=== PATIENT | male | born 1965 | race Caucasian/White ===

== ENCOUNTER 2016-12-07 14:11 | Emergency (ER) | payer BC ==
[~2016-12-07] VITALS: Ht 175.3 cm; Wt 85.0 kg
[2016-12-07 14:12] VITALS: BP 165/101; PULSE 115; RESP 18; TEMP 98.6; O2SAT 95
--- NOTE | 2016-12-07 14:23 | PD ---
Physical Exam Date Seen by Provider: Dec 07, 2016 Time Seen by Provider: 14:21 Narrative 51 yo male here for evaluation of urinary retention. Feels like has to go, but has not been able to go at all. Never had this. Pain like the bladder is full. No fevers, chills or sweats. No injuries. Vitals are stable in triage. Awaiting bed placement. Data Data Last Documented VS Vital Signs Date Time Temp Pulse Resp B/P Pulse Ox O2 Delivery O2 Flow Rate FiO2 12/07/16 14:12 98.6 115 18 165/101 95 Room Air [facility] Medical Record Reviewed: Yes Supervised Visit with DILLON: No Andre Polk Dec 07, 2016 14:22
[2016-12-07] MEDS ORDERED: SODIUM CHLORIDE 0.9% FLUSH 10 ML FLUSH IV FLUSH PRN (14:45)
--- NOTE | 2016-12-07 14:47 | PD ---
HPI Chief Complaint: Complaint Time Seen by Provider: 14:30 Travel History International Travel<30 days: No Contact w/Intl Traveler<30days: No Traveled to known affect area: No History of Present Illness HPI 51-year-old male with no significant past medical history presents emergency department for evaluation of urinary retention. Patient reports he last voided at 8 AM this morning. Since then he has been unable to urinate and feels as if his bladder is full. Patient has never had this before. He is reporting moderate lower abdominal discomfort. He reports over the last several days he has had increasing difficulty voiding. Stating he has to "concentrate "or running water to initiate voiding. He denies fever, chills, dysuria, nausea, vomiting, flank pain. PFSH Past Medical History Medical History: Denies Significant Hx Social History Tobacco Use: No Allergies-Medications (Allergen,Severity, Reaction): Coded Allergies: No Known Allergies (Unverified , 12/07/16) Reported Meds & Prescriptions Reported Meds & Active Scripts Active No Active Prescriptions or Reported Medications Review of Systems Except as stated in HPI: all other systems reviewed are Neg General / Constitutional: No: Fever Eyes: No: Visual changes HENT: No: Headaches Cardiovascular: No: Chest Pain or Discomfort Respiratory: No: Shortness of Breath Gastrointestinal: No: Abdominal Pain Genitourinary: Positive: Other (urinary retention) Physical Exam Narrative GENERAL: Alert, well-appearing male in no acute distress SKIN: Focused skin assessment warm/dry. HEAD: Atraumatic. Normocephalic. EYES: Pupils equal and round. No scleral icterus. No injection or drainage. ENT: No nasal bleeding or discharge. Mucous membranes pink and moist. NECK: Trachea midline. No JVD. CARDIOVASCULAR: Regular rate and rhythm. No murmur appreciated. RESPIRATORY: No accessory muscle use. Clear to auscultation. Breath sounds equal bilaterally. GASTROINTESTINAL: Abdomen soft, TTP over suprapubic region, full distended bladder palpated. Hepatic and splenic margins not palpable. RECTAL EXAM: Multiple inflamed external hemorrhoids, limited exam due to patient 's pain. stool is brown. MUSCULOSKELETAL: No obvious deformities. No clubbing. No cyanosis. No edema. NEUROLOGICAL: Awake and alert. No obvious cranial nerve deficits. Motor grossly within normal limits. Normal speech. PSYCHIATRIC: Appropriate mood and affect; insight and judgment normal. Data Data Last Documented VS Vital Signs Date Time Temp Pulse Resp B/P Pulse Ox O2 Delivery O2 Flow Rate FiO2 12/07/16 14:12 98.6 115 18 165/101 95 Room Air Orders Basic Metabolic Panel (Bmp) (12/07/16 14:35) Complete Blood Count With Diff (12/07/16 14:35) Urinalysis - C+S If Indicated (12/07/16 14:35) Iv Access Insert/Monitor (12/07/16 14:35) Sodium Chloride 0.9% Flush (Ns Flush) (12/07/16 14:45) Urinary Catheter Insert/Apply (12/07/16 14:35) Sodium Chlor 0.9% 1000 Ml Inj (Ns 1000 M (12/07/16 16:19) Labs Laboratory Tests Test 12/07/16 12/07/16 14:00 14:44 Urine Color YELLOW Urine Turbidity HAZY Urine pH 7.0 Urine Specific [place] 1.011 Urine Protein NEG mg/dL Urine Glucose (UA) NEG mg/dL Urine Ketones NEG mg/dL Urine Occult Blood NEG Urine Nitrite NEG Urine Bilirubin NEG Urine Urobilinogen LESS THAN 2.0 MG/DL Urine Leukocyte Esterase NEG Urine WBC 1 /hpf Urine Yeast (Budding) FEW Microscopic Urinalysis Comment CULT NOT INDICATED White Blood Count 5.5 TH/MM3 Red Blood Count 4.99 MIL/MM3 Hemoglobin 14.7 GM/DL Hematocrit 43.4 % Mean Corpuscular Volume 86.9 FL Mean Corpuscular Hemoglobin 29.5 PG Mean Corpuscular Hemoglobin 33.9 % Concent Red Cell Distribution Width 14.8 % Platelet Count 271 TH/MM3 Mean Platelet Volume 7.4 FL Neutrophils (%) (Auto) 58.5 % Lymphocytes (%) (Auto) 21.3 % Monocytes (%) (Auto) 17.6 % Eosinophils (%) (Auto) 1.5 % Basophils (%) (Auto) 1.1 % Neutrophils # (Auto) 3.2 TH/MM3 Lymphocytes # (Auto) 1.2 TH/MM3 Monocytes # (Auto) 1.0 TH/MM3 Eosinophils # (Auto) 0.1 TH/MM3 Basophils # (Auto) 0.1 TH/MM3 CBC Comment DIFF FINAL Differential Comment Sodium Level 141 MEQ/L Potassium Level 3.6 MEQ/L Chloride Level 101 MEQ/L Carbon Dioxide Level 28.9 MEQ/L Anion Gap 11 MEQ/L Blood Urea Nitrogen 8 MG/DL Creatinine 0.84 MG/DL Estimat Glomerular Filtration 97 ML/MIN Rate Random Glucose 107 MG/DL Calcium Level 9.6 MG/DL [facility] Medical Decision Making Medical Screen Exam Complete: Yes Emergency Medical Condition: Yes Differential Diagnosis Urinary retention, BPH, UTI, external hemorrhoids Narrative Course 51 year old male with new onset urinary retention. Last void was at 8am. On physical exam patient has distended bladder. IV established, labs ordered and pending, rolle catheter ordered. Patient had 2000 cc of urine post-Rolle inserted. CBC is unremarkable BMP unremarkable UA negative for infection Diagnostic findings discussed with patient. He will be discharged home with a Rolle catheter and leg bag with follow-up with urology. Patient reports upon discharge and they're driving home to [place] where he has a urologist in mind to follow-up with. Return precautions discussed. Patient verbalizes understanding and agrees to plan. Diagnosis Primary Impression: Urinary retention Additional Impression: External hemorrhoids without complication Referrals: Primary Care Physician Additional Instructions: Leave the Rolle catheter in place until follow-up. Make an appointment for prompt follow-up with urology. Return to the emergency department if he developed new or worsening symptoms such as fever, chills, abdominal pain, flank pain. Scripts Hydrocortisone-Pramoxine Rectal (Proctofoam Hc Rectal)1-1% Foam1 Applic RECTAL Q8H PRN (ITCHING/INFLAMMATION) #1 CAN Ref 0 Prov:Amina Mcdonough 12/07/16 Disposition: 01 DISCHARGE HOME Condition: Stable Amina Mcdonough Dec 07, 2016 14:47
[2016-12-07 15:28] LABS: BLOOD, URINE NEG (NEG); COMMENT (UR) CULT NOT INDICATED; CULTURE IF INDICATED CULT NOT INDICATED; GLUCOSE,URINE NEG (NEG); KETONE, URINE NEG (NEG); NITRITE,URINE NEG (NEG); URINE COLOR YELLOW (YELLW/STRAW)
[2016-12-07 15:29] LABS: AUTOMATED NEUTROPHIL # 3.2 TH/MM3 (1.8-7.7); BASOPHIL # 0.1 TH/MM3 (0-0.2); BASOPHIL % 1.1 % (0.0-2.0); EOSINOPHIL # 0.1 TH/MM3 (0-0.4); EOSINOPHIL % 1.5 % (0.0-4.0); HEMATOCRIT 43.4 % (39.0-51.0); HEMO FLAGS DIFF FINAL; LYMPH % 21.3 % (9.0-44.0); LYMPHOCYTE # 1.2 TH/MM3 (1.0-4.8); MEAN CELL VOLUME 86.9 FL (80.0-100.0); MEAN CORPUSCULAR HEMOGLOBIN 29.5 PG (27.0-34.0); MEAN CORPUSCULAR HGB CONC 33.9 % (32.0-36.0); MONO % 17.6 % (0.0-8.0); NEUT % 58.5 % (16.0-70.0); PLATELET COUNT 271 TH/MM3 (150-450); RED BLOOD COUNT 4.99 MIL/MM3 (4.50-5.90); RED CELL DISTRIBUTION WIDTH 14.8 % (11.6-17.2); WHITE BLOOD COUNT 5.5 TH/MM3 (4.0-11.0)
[2016-12-07 16:08] LABS: BICARBONATE 28.9 MEQ/L (21.0-32.0); POTASSIUM 3.6 MEQ/L (3.5-5.1)
[2016-12-07] MEDS ORDERED: SODIUM CHLOR 0.9% 1000 ML INJ 1,000 ML IV SCH (16:19)
--- NOTE | 2016-12-07 16:26 | PD ---
Data Data Last Documented VS Vital Signs Date Time Temp Pulse Resp B/P Pulse Ox O2 Delivery O2 Flow Rate FiO2 12/07/16 14:12 98.6 115 18 165/101 95 Room Air Orders Basic Metabolic Panel (Bmp) (12/07/16 14:35) Complete Blood Count With Diff (12/07/16 14:35) Urinalysis - C+S If Indicated (12/07/16 14:35) Iv Access Insert/Monitor (12/07/16 14:35) Sodium Chloride 0.9% Flush (Ns Flush) (12/07/16 14:45) Urinary Catheter Insert/Apply (12/07/16 14:35) Sodium Chlor 0.9% 1000 Ml Inj (Ns 1000 M (12/07/16 16:19) Labs Laboratory Tests Test 12/07/16 12/07/16 14:00 14:44 Urine Color YELLOW Urine Turbidity HAZY Urine pH 7.0 Urine Specific [place] 1.011 Urine Protein NEG mg/dL Urine Glucose (UA) NEG mg/dL Urine Ketones NEG mg/dL Urine Occult Blood NEG Urine Nitrite NEG Urine Bilirubin NEG Urine Urobilinogen LESS THAN 2.0 MG/DL Urine Leukocyte Esterase NEG Urine WBC 1 /hpf Urine Yeast (Budding) FEW Microscopic Urinalysis Comment CULT NOT INDICATED White Blood Count 5.5 TH/MM3 Red Blood Count 4.99 MIL/MM3 Hemoglobin 14.7 GM/DL Hematocrit 43.4 % Mean Corpuscular Volume 86.9 FL Mean Corpuscular Hemoglobin 29.5 PG Mean Corpuscular Hemoglobin 33.9 % Concent Red Cell Distribution Width 14.8 % Platelet Count 271 TH/MM3 Mean Platelet Volume 7.4 FL Neutrophils (%) (Auto) 58.5 % Lymphocytes (%) (Auto) 21.3 % Monocytes (%) (Auto) 17.6 % Eosinophils (%) (Auto) 1.5 % Basophils (%) (Auto) 1.1 % Neutrophils # (Auto) 3.2 TH/MM3 Lymphocytes # (Auto) 1.2 TH/MM3 Monocytes # (Auto) 1.0 TH/MM3 Eosinophils # (Auto) 0.1 TH/MM3 Basophils # (Auto) 0.1 TH/MM3 CBC Comment DIFF FINAL Differential Comment Sodium Level 141 MEQ/L Potassium Level 3.6 MEQ/L Chloride Level 101 MEQ/L Carbon Dioxide Level 28.9 MEQ/L Anion Gap 11 MEQ/L Blood Urea Nitrogen 8 MG/DL Creatinine 0.84 MG/DL Estimat Glomerular Filtration 97 ML/MIN Rate Random Glucose 107 MG/DL Calcium Level 9.6 MG/DL MDM Supervised Visit with DILLON: Yes Narrative Course The history, exam, and medical decision-making in the associated midlevel provider note were completed with my assistance. I reviewed and agree with the findings presented. I attest that I had a [id number] encounter with the patient on the same day, and personally performed and documented my assessment and findings in the medical record. *My assessment and Findings: This is a 51-year-old male who presents to the emergency department with acute urinary retention. A Levi catheter was placed and he drained a large amount of urine. He was given a liter of IV fluid. Labs were obtained and were reassuring with no evidence of renal failure. Patient expressed understanding of his need to follow-up with the urologist and he was discharged home with a Levi catheter. Diagnosis Primary Impression: Urinary retention Additional Impression: External hemorrhoids without complication Referrals: Primary Care Physician Scripts No Active Prescriptions or Reported Meds Disposition: 01 DISCHARGE HOME Condition: Stable Bijal Arteaga MD Dec 07, 2016 16:26
[2016-12-07] MEDS ORDERED: PROCHCT RECTAL (17:43)
== END 2016-12-07 18:43 | disposition home or self-care (01) ==
LOC: NEPD 14:11
DX: R33.9 Retention of urine, unspecified (principal); K64.4 Residual hemorrhoidal skin tags
CPT/HCPCS: 51702; 80048; 81001; 85025; 99283; J7030